=== PATIENT | female | born 1945 | race Caucasian/White ===

== ENCOUNTER → 2017-10-20 | Outpatient (CLI) | payer OTHER, MEDICAID ==
[~2017-10-20] MED LIST: ASPI325T4 PO; ATO40T PO; BACL10TA PO; CETI5TAB20 PO; DIPH2.5T73 PO; DULO60CA; FENO1TAB42 PO; FURO40TA; FURO40TA4 PO; GABA100C; GABA100C9 PO; LEVO100T8 PO; LEVO25TA6; LISI-709; LORA-205; MECL-87 PO; METO25TA62 PO; MONT10TA34 PO; OMEP20TA PO; OMEP20TA34; POTA12PO2; POTA20TA53 PO; SIMV80TA62; TRAM50TA2 PO; VENL75TA PO; VIT B-12
[2017-10-20 12:14] LABS: Urine Blood Negative /uL (Negative); Urine Specific Gravity 1.007 (1.001-1.035)
[2017-10-20 12:19] LABS: Basophils # (auto) 0.1 uL; Basophils % (auto) 1.1 % (0.0-2.0); Eosinophils # (auto) 0.2 uL; Eosinophils % (auto) 3.7 % (0.0-7.0); Hematocrit 41.5 % (36.0-46.0); Hemoglobin 13.7 g/dL (12.2-16.2); Lymphocytes # (auto) 2.3 uL; Lymphocytes % (auto) 39.5 % (10.0-50.0); Mean Corpuscular Hemoglobin 30.5 pg (28.0-32.0); Mean Corpuscular Hgb Conc. 33.2 g/dL (32.0-36.0); Mean Corpuscular Volume 92.1 fL (80.0-100.0); Monocytes # (auto) 0.5 uL; Monocytes % (auto) 9.4 % (0.0-12.0); Neutrophils # (auto) 2.7 uL; Neutrophils % (auto) 46.3 % (37.0-80.0); Nucleated Red Blood Cells % 0.3 %; Platelet Count (auto) 245 10^3/uL (140-450); Red Cell Distribution Width 13.7 % (11.8-14.3); White Blood Cell 5.8 10^3/uL (4.4-10.8)
[2017-10-20 12:41] LABS: Free T4 (Free Thyroxine) 1.43 ng/dL (0.89-1.76)
[2017-10-20 12:42] LABS: Albumin 3.8 g/dL (3.4-5.0); Bilirubin, Total 0.7 mg/dL (0.2-1.0); Calcium 9.5 mg/dL (8.5-10.1); Potassium 3.7 mmol/L (3.5-5.1); Total Protein 7.6 g/dL (6.4-8.2)
== END | disposition home or self-care (01) ==
LOC: Rad HDHVI 09:54
PROVIDERS: ATTEND Internal Medicine Cardiovascular Disease
DX: I70.0 Atherosclerosis of aorta (principal); E78.00 Pure hypercholesterolemia, unspecified; D64.9 Anemia, unspecified; I10 Essential (primary) hypertension; E11.9 Type 2 diabetes mellitus without complications; E03.9 Hypothyroidism, unspecified; E55.9 Vitamin D deficiency, unspecified; D51.9 Vitamin B12 deficiency anemia, unspecified; N39.0 Urinary tract infection, site not specified
CPT/HCPCS: 36415; 80053; 80061; 81003; 82306; 82607; 83036; 84439; 84443; 85025; 93306

== ENCOUNTER → 2017-10-22 | Outpatient (CLI) | payer OTHER, MEDICAID ==
[~2017-10-22] MED LIST changes: +ADENOSINE 80 MG in GIVE UN-DILUTED 0 ML IV ONE; +ADENOSINE 90 MG/30 ML INJ IV ONE
[2017-10-23 12:08] LABS: Urine Blood Negative /uL (Negative); Urine Specific Gravity 1.008 (1.001-1.035)
== END | disposition home or self-care (01) ==
LOC: Rad HDHVI 13:49
PROVIDERS: ATTEND Internal Medicine Cardiovascular Disease
DX: I10 Essential (primary) hypertension (principal); R06.02 Shortness of breath; R94.31 Abnormal electrocardiogram [ECG] [EKG]; M19.90 Unspecified osteoarthritis, unspecified site; G62.9 Polyneuropathy, unspecified; E78.5 Hyperlipidemia, unspecified; R20.0 Anesthesia of skin; N39.0 Urinary tract infection, site not specified; R07.89 Other chest pain
CPT/HCPCS: 78452; 81003; 87086; 93005; 96374; 96375; A9500; J0153

== ENCOUNTER → 2017-11-09 | Outpatient (CLI) | payer OTHER, MEDICAID ==
[~2017-11-09] MED LIST changes: -ADENOSINE 80 MG in GIVE UN-DILUTED 0 ML IV ONE; +ANGIOMAX 250 MG VIAL IV ONE; +CLOPIDOGREL 300 MG TAB ONE; +MIDAZOLAM HCL 1MG/1ML-2 ML VIAL ONE; +SODIUM CHL 0.9% 0 ML ONE; +SODIUM CHL 0.9% 50 ML ONE; +VERAPAMIL 2.5MG/ML INJ 2ML VIAL IV ONE; +fentaNYL CITRATE 100 MCG/2 ML VL ONE
[2017-11-09 15:35] VITALS: BP 132/78
[2017-11-09 15:40] VITALS: BP 117/67
== END | disposition home or self-care (01) ==
LOC: Rad HDHVI 14:18
PROVIDERS: ATTEND Internal Medicine Cardiovascular Disease
DX: Z01.818 Encounter for other preprocedural examination (principal); I10 Essential (primary) hypertension; E78.5 Hyperlipidemia, unspecified; D64.9 Anemia, unspecified; E78.00 Pure hypercholesterolemia, unspecified; R07.89 Other chest pain
CPT/HCPCS: 71046; 93005; G0463

== ENCOUNTER → 2017-11-10 | Outpatient (CLI) | payer OTHER, MEDICAID ==
[~2017-11-10] MED LIST changes: -ADENOSINE 90 MG/30 ML INJ IV ONE; -ANGIOMAX 250 MG VIAL IV ONE; -CLOPIDOGREL 300 MG TAB ONE; -DULO60CA; -FURO40TA; -GABA100C; -LEVO25TA6; -LISI-709; -LORA-205; -MIDAZOLAM HCL 1MG/1ML-2 ML VIAL ONE; -OMEP20TA34; -POTA12PO2; -SIMV80TA62; -SODIUM CHL 0.9% 0 ML ONE; -SODIUM CHL 0.9% 50 ML ONE; -VERAPAMIL 2.5MG/ML INJ 2ML VIAL IV ONE; -VIT B-12; -fentaNYL CITRATE 100 MCG/2 ML VL ONE
[2017-11-10 16:01] LABS: Basophils # (auto) 0.1 uL; Basophils % (auto) 1.2 % (0.0-2.0); Eosinophils # (auto) 0.2 uL; Eosinophils % (auto) 3.3 % (0.0-7.0); Hematocrit 46.1 % (36.0-46.0); Lymphocytes # (auto) 2.1 uL; Lymphocytes % (auto) 30.7 % (10.0-50.0); Mean Corpuscular Hemoglobin 30.3 pg (28.0-32.0); Mean Corpuscular Hgb Conc. 32.6 g/dL (32.0-36.0); Mean Corpuscular Volume 92.7 fL (80.0-100.0); Monocytes # (auto) 0.5 uL; Neutrophils # (auto) 3.9 uL; Neutrophils % (auto) 56.8 % (37.0-80.0); Nucleated Red Blood Cells % 1.7 %; Platelet Count (auto) 293 10^3/uL (140-450); Red Blood Cells 4.97 10^6/uL (4.0-5.20); Red Cell Distribution Width 14.1 % (11.8-14.3); White Blood Cell 6.8 10^3/uL (4.4-10.8)
[2017-11-10 16:20] LABS: BUN/Creatinine Ratio 14.4; Calcium 9.5 mg/dL (8.5-10.1); Potassium 3.9 mmol/L (3.5-5.1)
[2017-11-10 16:21] LABS: INR 0.93 (0.9-1.15); Partial Thromboplastin Time 27.4 sec (22.64-33.71); Prothrombin Time 10.1 sec (9.37-12.3)
== END | disposition home or self-care (01) ==
LOC: Rad HDHVI 11:32
PROVIDERS: ATTEND Internal Medicine Cardiovascular Disease
DX: Z01.818 Encounter for other preprocedural examination (principal); I65.22 Occlusion and stenosis of left carotid artery; D64.9 Anemia, unspecified; R79.1 Abnormal coagulation profile; I10 Essential (primary) hypertension; I25.10 Atherosclerotic heart disease of native coronary artery without angina pectoris; E78.5 Hyperlipidemia, unspecified; E78.00 Pure hypercholesterolemia, unspecified; Z85.3 Personal history of malignant neoplasm of breast
CPT/HCPCS: 36415; 80048; 85025; 85610; 85730; 93880

== ENCOUNTER 2017-11-11 07:57 | Inpatient (IN) | payer OTHER, MEDICAID ==
[~2017-11-11] VITALS: Ht 167.6 cm; Wt 97.7 kg
[2017-11-11] MEDS ORDERED: IODIXANOL 320MG/ML 100ML BTL IV ONE (08:44)
[2017-11-11] MEDS ORDERED: LIDOCAINE HCL 2 %PF INJ 10ML AMP IJ ONE (08:44)
[2017-11-11] MEDS ORDERED: ONDANSETRON HCL 4 MG/2 ML VIAL ONE (11:43)
[2017-11-11] MEDS ORDERED: MORPHINE SULFATE 4 MG/ML SYR/VIAL IV PRN ×2 (11:45→12:00)
[2017-11-11] MEDS ORDERED: ONDANSETRON HCL 4 MG/2 ML VIAL IV ONE (11:45)
[2017-11-11] MEDS ORDERED: NITROGLYCERIN 0.4 MG SL TAB SL PRN ×3 (11:45→12:00)
[2017-11-11] MEDS ORDERED: SODIUM CHLORIDE 0.9% 1,000 ML IV SCH (11:47)
[2017-11-11] MEDS ORDERED: ANGIOMAX 250 MG VIAL IV ONE (11:56)
[2017-11-11] MEDS ORDERED: CLOPIDOGREL 300 MG TAB ONE (11:56)
[2017-11-11] MEDS ORDERED: SODIUM CHL 0.9% 50 ML ONE (11:57)
[2017-11-11] MEDS ORDERED: fentaNYL CITRATE 100 MCG/2 ML VL ONE (11:57)
[2017-11-11] MEDS ORDERED: MIDAZOLAM HCL 1MG/1ML-2 ML VIAL ONE (11:57)
[2017-11-11] MEDS ORDERED: HYDROcodone-ACET 10/325MG TAB PO PRN (12:00)
[2017-11-11] MEDS ORDERED: KETOROLAC TROMETH 30 MG/ML 1ML VIAL IV PRN (12:00)
[2017-11-11] MEDS ORDERED: CLOPIDOGREL BISULFATE 75 MG TAB PO ONE (12:00)
[2017-11-11] MEDS ORDERED: ACETAMINOPHEN 500 MG TAB PO PRN (12:00)
[2017-11-11] MEDS ORDERED: MORPHINE SULF INJ 2 MG/ML SYRINGE 1ML IV PRN (12:00)
[2017-11-11] MEDS ORDERED: ADENOSINE 90 MG/30 ML INJ IV ONE (12:01)
[2017-11-11] MEDS: VENLAFAXINE HCL 25MG TABLET PO SCH (12:15)
[2017-11-11 13:30] VITALS: BP 91/52
[2017-11-11] MEDS: POTASSIUM CHL 20 Meq TABLET PO SCH ×2 (15:12→22:56)
[2017-11-11 16:55] VITALS: BP 91/52
[2017-11-11] MEDS: PANTOPRAZOLE 40 MG TAB PO SCH (18:58)
[2017-11-11 20:55] VITALS: BP 106/60
[2017-11-11] MEDS ORDERED: ATORVASTATIN 20 MG TAB PO SCH (22:00)
[2017-11-11] MEDS: GABAPENTIN 100 MG CAP PO SCH (22:57)
[2017-11-12 05:08] VITALS: BP 117/55
[2017-11-12] MEDS: VENLAFAXINE HCL 25MG TABLET PO SCH (06:27)
[2017-11-12] MEDS: POTASSIUM CHL 20 Meq TABLET PO SCH ×2 (06:27→14:00)
[2017-11-12] MEDS ORDERED: BACLOFEN 10 MG TAB PO SCH (07:00)
[2017-11-12] MEDS ORDERED: LEVOTHYROXINE SODIUM 100 MCG TAB PO SCH (07:00)
[2017-11-12 07:45] LABS: BUN/Creatinine Ratio 15.9; Calcium 8.7 mg/dL (8.5-10.1); Potassium 5.1 mmol/L (3.5-5.1)
[2017-11-12 09:00] VITALS: BP 103/59
[2017-11-12 09:35] LABS: Basophils # (auto) 0 uL; Basophils % (auto) 0.5 % (0.0-2.0); Eosinophils # (auto) 0.3 uL; Eosinophils % (auto) 4.1 % (0.0-7.0); Hemoglobin 13.5 g/dL (12.2-16.2); Lymphocytes # (auto) 1.6 uL; Lymphocytes % (auto) 23.6 % (10.0-50.0); Mean Corpuscular Hemoglobin 30.6 pg (28.0-32.0); Mean Corpuscular Hgb Conc. 32.9 g/dL (32.0-36.0); Mean Corpuscular Volume 93.2 fL (80.0-100.0); Monocytes # (auto) 0.4 uL; Monocytes % (auto) 6.3 % (0.0-12.0); Neutrophils # (auto) 4.3 uL; Neutrophils % (auto) 65.5 % (37.0-80.0); Nucleated Red Blood Cells % 0.2 %; Platelet Count (auto) 229 10^3/uL (140-450); Red Cell Distribution Width 14.1 % (11.8-14.3); White Blood Cell 6.6 10^3/uL (4.4-10.8)
[2017-11-12] MEDS ORDERED: CLOPIDOGREL BISULFATE 75 MG TAB PO SCH (10:00)
[2017-11-12] MEDS ORDERED: TRICOR 145 MG PO SCH (10:00)
[2017-11-12] MEDS ORDERED: METOPROLOL SUCCINATE XL 50 MG TAB PO SCH (10:00)
[2017-11-12] MEDS ORDERED: FUROSEMIDE 40 MG TAB PO SCH (10:00)
[2017-11-12] MEDS ORDERED: MONTELUKAST SODIUM 10 MG TAB PO SCH (10:00)
[2017-11-12] MEDS ORDERED: ASPirin 81 mg TAB PO SCH (10:00)
[2017-11-12] MEDS: PANTOPRAZOLE 40 MG TAB PO SCH (10:05)
[2017-11-12] MEDS: GABAPENTIN 100 MG CAP PO SCH (10:05)
[2017-11-12 13:00] VITALS: BP 124/65
[2017-11-12 16:08] VITALS: BP 103/59
== END 2017-11-12 17:00 | disposition home or self-care (01) | DRG 247 ==
LOC: CATH 07:57 → TELE-WESTW 07:58
PROVIDERS: ADMIT Internal Medicine; ATTEND Internal Medicine
PROC: 027034Z Dilation of Coronary Artery, One Artery with Drug-eluting Intraluminal Device, Percutaneous Approach (ICD-10-PCS; principal; 2017-11-11)
PROC: 4A033BC Measurement of Arterial Pressure, Coronary, Percutaneous Approach (ICD-10-PCS; 2017-11-11)
PROC: 4A023N7 Measurement of Cardiac Sampling and Pressure, Left Heart, Percutaneous Approach (ICD-10-PCS; 2017-11-11)
PROC: B2111ZZ Fluoroscopy of Multiple Coronary Arteries using Low Osmolar Contrast (ICD-10-PCS; 2017-11-11)
PROC: B2151ZZ Fluoroscopy of Left Heart using Low Osmolar Contrast (ICD-10-PCS; 2017-11-11)
DX: I25.10 Atherosclerotic heart disease of native coronary artery without angina pectoris (principal); E78.5 Hyperlipidemia, unspecified; I10 Essential (primary) hypertension; Z82.49 Family history of ischemic heart disease and other diseases of the circulatory system; Z85.3 Personal history of malignant neoplasm of breast; Z90.13 Acquired absence of bilateral breasts and nipples
CPT/HCPCS: 36415; 80048; 92928; 93458; 93571; 99152; C1874; J0153; J1885; J2250; J2405; Q9967

== ENCOUNTER → 2018-12-27 | Outpatient (CLI) | payer OTHER, MEDICAID | END | disposition home or self-care (01) | LOC: Rad HDHVI 13:02 | PROVIDERS: ATTEND Internal Medicine | DX: J44.9 Chronic obstructive pulmonary disease, unspecified (principal); I25.10 Atherosclerotic heart disease of native coronary artery without angina pectoris; I48.91 Unspecified atrial fibrillation | CPT/HCPCS: 93306 ==

== ENCOUNTER → 2019-01-20 | Outpatient (CLI) | payer OTHER, MEDICAID ==
[~2019-01-20] VITALS: Ht 165.1 cm; Wt 97.5 kg
[~2019-01-20] MED LIST changes: +ADENOSINE 82 MG in GIVE UN-DILUTED 0 ML IV ONE; +ADENOSINE 90 MG/30 ML INJ IV ONE
== END | disposition home or self-care (01) ==
LOC: Rad HDHVI 09:51
PROVIDERS: ATTEND Internal Medicine
DX: I25.10 Atherosclerotic heart disease of native coronary artery without angina pectoris (principal); J44.9 Chronic obstructive pulmonary disease, unspecified; M19.90 Unspecified osteoarthritis, unspecified site; E78.5 Hyperlipidemia, unspecified; E03.9 Hypothyroidism, unspecified; E66.9 Obesity, unspecified
CPT/HCPCS: 78452; 93005; 96374; 96375; A9500; J0153

== ENCOUNTER → 2019-06-07 | Outpatient (CLI) | payer OTHER, MEDICAID ==
[~2019-06-07] MED LIST changes: -ADENOSINE 82 MG in GIVE UN-DILUTED 0 ML IV ONE; -ADENOSINE 90 MG/30 ML INJ IV ONE; +POTA-220 PO; -POTA20TA53 PO
[2019-06-07 16:03] LABS: Urine Blood TRACE /uL (Negative); Urine Specific Gravity 1.007 (1.001-1.035)
[2019-06-07 16:06] LABS: Albumin 3.9 g/dL (3.4-5.0); Bilirubin, Total 0.7 mg/dL (0.2-1.0); Calcium 9.7 mg/dL (8.5-10.1); Potassium 3.5 mmol/L (3.5-5.1); Total Protein 8.2 g/dL (6.4-8.2)
== END | disposition home or self-care (01) ==
LOC: LAB 12:43
PROVIDERS: ATTEND Internal Medicine
DX: N39.0 Urinary tract infection, site not specified (principal); I10 Essential (primary) hypertension
CPT/HCPCS: 36415; 80053; 81003; 87086

== ENCOUNTER → 2019-09-22 | Outpatient (CLI) | payer OTHER, MEDICAID ==
[~2019-09-22] MED LIST changes: +FENO145T27 PO; -FENO1TAB42 PO; -METO25TA62 PO; +METO25TA93 PO
== END | disposition home or self-care (01) ==
LOC: Rad HDHVI 11:04
PROVIDERS: ATTEND Internal Medicine
DX: I25.10 Atherosclerotic heart disease of native coronary artery without angina pectoris (principal); I10 Essential (primary) hypertension; R00.2 Palpitations
CPT/HCPCS: 93306

== ENCOUNTER → 2019-09-27 | Outpatient (CLI) | payer OTHER, MEDICAID ==
[~2019-09-27] VITALS: Ht 167.6 cm; Wt 97.5 kg
[~2019-09-27] MED LIST changes: +ADENOSINE 82 MG in GIVE UN-DILUTED 0 ML IV ONE; +ADENOSINE 90 MG/30 ML INJ IV ONE; -MECL-87 PO; +MECL25TA18 PO
== END | disposition home or self-care (01) ==
LOC: Rad HDHVI 09:28
PROVIDERS: ATTEND Internal Medicine
DX: I25.10 Atherosclerotic heart disease of native coronary artery without angina pectoris (principal); I10 Essential (primary) hypertension; E78.5 Hyperlipidemia, unspecified; E78.00 Pure hypercholesterolemia, unspecified; Z95.5 Presence of coronary angioplasty implant and graft
CPT/HCPCS: 78452; 93005; 96374; 96375; A9500; J0153

== ENCOUNTER → 2021-09-04 | Outpatient (CLI) | payer OTHER ==
[~2021-09-04] MED LIST changes: -ADENOSINE 82 MG in GIVE UN-DILUTED 0 ML IV ONE; -ADENOSINE 90 MG/30 ML INJ IV ONE; -CETI5TAB20 PO; +CETI5TAB6 PO; +MONT-8 PO; -MONT10TA34 PO; +VENL1TAB99 PO; -VENL75TA PO
== END | disposition home or self-care (01) ==
LOC: Rad HDHVI 12:50
PROVIDERS: ATTEND Internal Medicine
DX: I05.9 Rheumatic mitral valve disease, unspecified (principal); I35.0 Nonrheumatic aortic (valve) stenosis; I48.91 Unspecified atrial fibrillation; E78.5 Hyperlipidemia, unspecified; I05.0 Rheumatic mitral stenosis
CPT/HCPCS: 93306

== ENCOUNTER → 2021-09-05 | Outpatient (CLI) | payer OTHER ==
[~2021-09-05] VITALS: Ht 167.6 cm; Wt 98.0 kg
[~2021-09-05] MED LIST changes: +ADENOSINE 82 MG in GIVE UN-DILUTED 0 ML IV ONE; +ADENOSINE 90 MG/30 ML INJ IV ONE
== END | disposition home or self-care (01) ==
LOC: Rad HDHVI 13:50
PROVIDERS: ATTEND Internal Medicine
DX: I25.10 Atherosclerotic heart disease of native coronary artery without angina pectoris (principal); I10 Essential (primary) hypertension; E78.5 Hyperlipidemia, unspecified; R42 Dizziness and giddiness; R07.89 Other chest pain
CPT/HCPCS: 78452; 93005; 96374; 96375; A9500; J0153

== ENCOUNTER → 2022-03-28 | Outpatient (CLI) | payer OTHER ==
[~2022-03-28] MED LIST changes: -ADENOSINE 82 MG in GIVE UN-DILUTED 0 ML IV ONE; -ADENOSINE 90 MG/30 ML INJ IV ONE
== END | disposition home or self-care (01) ==
LOC: Rad HDHVI 11:00
PROVIDERS: ATTEND Internal Medicine
DX: R07.89 Other chest pain (principal); R42 Dizziness and giddiness; R06.02 Shortness of breath
CPT/HCPCS: 93306

== ENCOUNTER → 2024-01-07 | Day surgery (SDC) | payer OTHER, MEDICAID ==
[2024-01-06 16:28] LABS: Basophils # (auto) 0.1 10 ^3/uL (0-0.2); Basophils % (auto) 0.8 % (0.0-2.0); Eosinophils # (auto) 0.2 10 ^3/uL (0-0.8); Eosinophils % (auto) 2.8 % (0.0-7.0); Hematocrit 43.7 % (36.0-46.0); Hemoglobin 14.5 g/dL (12.2-16.2); Lymphocytes # (auto) 2.2 10 ^3/uL (0.4-5.4); Lymphocytes % (auto) 34.1 % (10.0-50.0); Mean Corpuscular Hemoglobin 30.7 pg (28.0-32.0); Mean Corpuscular Hgb Conc. 33.3 g/dL (32.0-36.0); Mean Corpuscular Volume 92.2 fL (80.0-100.0); Monocytes # (auto) 0.5 10 ^3/uL (0-1.3); Neutrophils # (auto) 3.4 10 ^3/uL (1.6-8.6); Neutrophils % (auto) 54.3 % (37.0-80.0); Nucleated Red Blood Cells % 0.2 %; Red Blood Cells 4.73 10^6/uL (4.0-5.20); Red Cell Distribution Width 14.2 % (11.8-14.3); White Blood Cell 6.3 10^3/uL (4.4-10.8)
[2024-01-06 16:43] LABS: Partial Thromboplastin Time 25.7 SEC (24.5-34.5); Prothrombin Time 10.6 sec (9.3-11.8)
[2024-01-06 16:46] LABS: Chloride 111 mmol/L (98-107); Potassium 4.4 mmol/L (3.5-5.1); Sodium 141 mmol/L (136-145)
[2024-01-06 16:47] LABS: Anion Gap 6 (5-15); Calcium 10.5 mg/dL (8.7-10.4); Carbon Dioxide 24 mmol/L (20-30)
[2024-01-06 16:52] LABS: BUN/Creatinine Ratio 13.5 (10.0-20.0); Blood Urea Nitrogen 13 mg/dL (9-23); Glucose 106 mg/dL (74-106)
[~2024-01-07] VITALS: Ht 170.2 cm; Wt 93.4 kg
[~2024-01-07] MED LIST changes: +AMLO1TAB22 PO; +AMLO1TAB23 PO; -ASPI325T4 PO; +ASPI325T6 PO; -ATO40T PO; +ATOR-507 PO; -BACL10TA PO; +CHOL20007 PO; +CLOP75TA28 PO; +CLOTCRE3 EX; +CYCL-839 PO; +GABA-1308 PO; -GABA100C9 PO; +HYDR-3682 PO; +HYDR-4798 PO; +LEV50T PO; +MECL-90 PO; -MECL25TA18 PO; +METO-289 PO; +OMEGCAP28 PO; +POM PO; +TRAZ1TAB12 PO
== END | disposition home or self-care (01) ==
LOC: CATH 09:26
PROVIDERS: ATTEND Internal Medicine Cardiovascular Disease
DX: R00.1 Bradycardia, unspecified (principal); Z53.8 Procedure and treatment not carried out for other reasons; I10 Essential (primary) hypertension; Z79.01 Long term (current) use of anticoagulants; Z88.1 Allergy status to other antibiotic agents
CPT/HCPCS: 36415; 71260; 76604; 80048; 85025; 85610; 85730; Q9967

== ENCOUNTER 2024-06-21 06:23 | Day surgery (SDC) | payer OTHER, MEDICAID ==
[2024-06-20 11:10] LABS: Basophils # (auto) 0.1 10 ^3/uL (0-0.2); Eosinophils # (auto) 0.2 10 ^3/uL (0-0.8); Eosinophils % (auto) 3.8 % (0.0-7.0); Hematocrit 47.8 % (36.0-46.0); Hemoglobin 16.1 g/dL (12.2-16.2); Lymphocytes # (auto) 2.2 10 ^3/uL (0.4-5.4); Lymphocytes % (auto) 36.4 % (10.0-50.0); Mean Corpuscular Hemoglobin 30.8 pg (28.0-32.0); Mean Corpuscular Hgb Conc. 33.6 g/dL (32.0-36.0); Mean Corpuscular Volume 91.7 fL (80.0-100.0); Monocytes # (auto) 0.5 10 ^3/uL (0-1.3); Monocytes % (auto) 8.7 % (0.0-12.0); Neutrophils # (auto) 3.1 10 ^3/uL (1.6-8.6); Neutrophils % (auto) 50.1 % (37.0-80.0); Nucleated Red Blood Cells % 0.1 %; Platelet Count (auto) 271 10^3/uL (140-450); Red Blood Cells 5.21 10^6/uL (4.0-5.20); Red Cell Distribution Width 14.3 % (11.8-14.3); White Blood Cell 6.1 10^3/uL (4.4-10.8)
[2024-06-20 11:22] LABS: INR 1.04 (0.9-1.15); Partial Thromboplastin Time 25.9 SEC (24.5-34.5)
[2024-06-20 11:43] LABS: Anion Gap 6 (5-15); Carbon Dioxide 28 mmol/L (20-31); Chloride 107 mmol/L (98-107); Potassium 4.2 mmol/L (3.5-5.1); Sodium 141 mmol/L (136-145)
[2024-06-20 11:44] LABS: Calcium 10.9 mg/dL (8.7-10.4)
[2024-06-20 11:49] LABS: Blood Urea Nitrogen 16 mg/dL (9-23); Glucose 128 mg/dL (74-106)
[~2024-06-21] VITALS: Ht 170.2 cm; Wt 93.0 kg
[~2024-06-21 06:23] MED LIST changes: -AMLO1TAB22 PO; +ASPI-498 OR; -ASPI325T6 PO; -CETI5TAB6 PO; -CLOTCRE3 EX; -DIPH2.5T73 PO; -GABA-1308 PO; -HYDR-4798 PO; -LEV50T PO; +LEVO-848 PO; -LEVO100T8 PO; +MAGN400T40 PO; -METO25TA93 PO; -POM PO; +PREG100C PO
[2024-06-21] MEDS ORDERED: VANCOMYCIN HCL 1000 MG VL ONE (10:04)
[2024-06-21] MEDS ORDERED: fentaNYL CITRATE 100 MCG/2 ML VL ONE (10:04)
[2024-06-21] MEDS ORDERED: MIDAZOLAM HCL 2MG/2ML 2ml VIAL (1mg/ml) ONE (10:05)
[2024-06-21] MEDS ORDERED: LIDOCAINE 2%HCL (LOCAL ANESTH.) INJ 20ML MDV ONE (10:05)
[2024-06-21] MEDS ORDERED: VANCOMYCIN 1GM/200ML PREMIX 200 ML IV ONE (10:05)
--- NOTE | 2024-06-21 12:10 | ECG ---
[facility] Test Date: 2024-06-21 Test Time: 11:33:29 Pat Name: GIOVANNY TRACY Department: Room: Gender: F Cash Controller: IAN : 1945 Requested By: CARROL MENDOZA Order Number: [id number] Reading MD: Sarahi Lafleur Measurements Intervals [place] Rate: 71 P: 54 [place]: 146 QRS: 11 QRSD: 94 T: -15 QT: 430 QTc: 467 Interpretive Statements Normal sinus rhythm ST & T wave abnormality, consider inferior ischemia ST & T wave abnormality, consider anterolateral ischemia Electronically Signed On 06-21-2024 16:16:58 PST by Sarahi Lafleur Please click the below link to view image of tracing.
--- NOTE | 2024-06-21 12:19 | DVH ---
CHEST RADIOGRAPH Indication:S/P PACEMAKER Technique: Single frontal view of the chest was obtained Comparison: None FINDINGS: Lines and Tubes: Right dual lead pacemaker. Lungs: No focal consolidation. Pleura: No effusion. No pneumothorax. Cardiomediastinal contours: Cardiomegaly. Bones: No acute osseous abnormality. IMPRESSION: Cardiomegaly with mild CHF.
--- NOTE | 2024-07-01 13:50 | DVHOP ---
DATE OF SURGERY: 06/21/2024 PROCEDURES PERFORMED: 1. Dual chamber permanent pacemaker implantation. 2. Venography. 3. Conscious sedation. DESCRIPTION OF PROCEDURE: The patient was prepped and draped in a sterile condition. 1% Xylocaine used to anesthetize the left subclavicular region. Using a Cook needle, the left subclavian vein was engaged with Seldinger technique. A guidewire was then appropriately positioned. Using a 10 blade, linear incision was made using blunt dissection, electrocautery, pocket was dissected out. Then, using 9-Mosotho peel-away sheath, right ventricular active fixation lead then appropriately positioned. Threshold parameters were obtained. Lead was secured to the chest wall using 0 Ethibond. Similarly using a 7-Mosotho peel-away sheath, the right atrial active fixation lead then appropriately positioned. Threshold parameters were obtained. Lead was secured to the chest wall using 0 Ethibond. Generator was implanted. Pocket was irrigated using vancomycin saline solution. Pocket was closed using 3-0 Monoderm subcutaneous sutures by 3-0 Monoderm subcuticular sutures. There were no complications. The patient tolerated the procedure well. RESULTS: The patient had a Biotronik MRI compatible dual-chamber permanent pacemaker. Threshold parameters are right atrial lead, P-wave amplitude of 2.4 millivolts, threshold of 0.8 volts at 0.4 milliseconds, pulse duration, pacing impedance of 487 ohms. Right ventricular lead, R-wave amplitude of 12.8 millivolts, threshold of 0.7 volts at 0.4 milliseconds pulse duration, pacing impedance of 682 ohms. Thus, the patient had successful implantation of Biotronik MRI compatible dual-chamber permanent pacemaker. Oral Sun MD SA/ANA TID: [id number] RECEIPT: [id number]
== END 2024-06-21 13:42 | disposition home or self-care (01) ==
LOC: CATH 06:23
PROVIDERS: ATTEND Internal Medicine Cardiovascular Disease
DX: I44.30 Unspecified atrioventricular block (principal); I49.5 Sick sinus syndrome; I11.0 Hypertensive heart disease with heart failure; I50.9 Heart failure, unspecified; Z85.3 Personal history of malignant neoplasm of breast; F41.9 Anxiety disorder, unspecified; F32.A Depression, unspecified; Z88.2 Allergy status to sulfonamides; Z88.1 Allergy status to other antibiotic agents; Z79.82 Long term (current) use of aspirin; Z79.01 Long term (current) use of anticoagulants; Z79.899 Other long term (current) drug therapy
CPT/HCPCS: 33208; 36415; 71045; 80048; 85025; 85610; 85730; 93005; C1769; C1785; C1898; J2250; J3010; J3370; 99152; 99153

== ENCOUNTER → 2024-06-22 | Outpatient (CLI) | payer OTHER ==
--- NOTE | 2024-06-22 10:02 | DVH ---
EXAM: XY CHEST TWO VIEWS ROUTINE CLINICAL HISTORY: POST OP SOB COMPARISON: XY CHEST TWO VIEWS ROUTINE on DOS: 06/20/24, XY CHEST TWO VIEWS ROUTINE on DOS: 01/06/24 TECHNIQUE: Frontal and lateral view of the chest was obtained FINDINGS: Lungs: No focal consolidation. Pleura: No effusion. No pneumothorax. Cardiomediastinal contours: Unremarkable Bones: There are chronic healed right rib fractures. There is fusion hardware in the cervical spine. There is again a dual lead pacer in the right chest wall. There are surgical clips in the bilateral a xilla. IMPRESSION: 1. No acute cardiopulmonary disease. HS:Y
== END | disposition home or self-care (01) ==
LOC: Rad HDHVI 08:57
PROVIDERS: ATTEND Internal Medicine Cardiovascular Disease
DX: R06.02 Shortness of breath (principal); Z95.0 Presence of cardiac pacemaker; Z98.890 Other specified postprocedural states
CPT/HCPCS: 71046

== ENCOUNTER 2025-05-29 11:46 | Day surgery (SDC) | payer OTHER, MEDICAID ==
[2025-05-23 11:56] LABS: Hematocrit 45.9 % (36.0-46.0); Hemoglobin 15.5 g/dL (12.2-16.2); Mean Corpuscular Hemoglobin 30.5 pg (28.0-32.0); Mean Corpuscular Volume 90.2 fL (80.0-100.0); Nucleated Red Blood Cells % 0.0 %
[2025-05-23 12:09] LABS: INR 1.01 (0.9-1.15); Partial Thromboplastin Time 26.3 SEC (24.5-34.5); Prothrombin Time 10.7 sec (9.3-11.8)
[2025-05-23 12:59] LABS: Alanine Aminotransferase 23 U/L (7-40); Albumin 4.5 g/dL (3.2-4.8); Alkaline Phosphatase 49 U/L (46-116); Anion Gap 10 (5-15); BUN/Creatinine Ratio 15.2 (10.0-20.0); Bilirubin, Total 0.6 mg/dL (0.2-1.0); Blood Urea Nitrogen 17 mg/dL (9-23); Carbon Dioxide 29 mmol/L (20-31); Chloride 104 mmol/L (98-107); Potassium 4.1 mmol/L (3.5-5.1); Sodium 143 mmol/L (136-145); Total Protein 7.5 g/dL (5.7-8.2)
[2025-05-23 13:00] LABS: Calcium 10.4 mg/dL (8.7-10.4); Glucose 115 mg/dL (74-106)
[~2025-05-29] VITALS: Ht 167.6 cm; Wt 92.1 kg
[~2025-05-29 11:46] MED LIST changes: -CYCL-839 PO; -HYDR-3682 PO; -OMEP20TA PO; -TRAZ1TAB12 PO
[2025-05-29] MEDS ORDERED: MIDAZOLAM HCL 2MG/2ML 2ml VIAL (1mg/ml) ONE (12:50)
[2025-05-29] MEDS ORDERED: fentaNYL CITRATE 100 MCG/2 ML VL ONE (12:50)
[2025-05-29] MEDS: ceFAZolin 2 GM/D5W50ml 50 ML IV ONE (13:20)
[2025-05-29] MEDS: BUPIVACAINE 0.5% P/F INJ 10 ML VIAL ONE (13:30)
--- NOTE | 2025-05-29 13:34 | DVHOP2 ---
Operative Report - 2 Report Details Date: 05/29/25 Preop Diagnosis: 1. Right foot 2nd hammer toe 2. Right foot 3rd hammer toe 3. Right foot 4th hammer toe 4. Right foot pain Postop Diagnosis: Same as preop Surgeon: Gracy Turk MD Anesthesiologist: See anesthesia Anesthesia: Mac Consent: The patient was informed of the risks and benefits of the procedure. These include but are not limited to complications of anesthesia, postoperative infection, incomplete relief of symptoms, recurrence of symptoms, damage to blood vessels, nerves and tendons, deep venous thrombosis, pulmonary embolism and possible need for repeat surgery in the future. Complications: None Estimated Blood Loss: Minimal Fluids: See anesthesia Findings: Consistent with diagnosis Indications for Surgery: Worsening foot pain Name of Procedure Performed 1. Right 2nd hammer toe repair (45454) 2. Right 3rd hammer toe repair (15005) 3. Right 4th hammer toe repair (17213) 4. Right 2nd flexor tenotomy (71371) 5. Right 3rd flexor tenotomy (09571) 6. Right 4th flexor tenotomy (21546) Procedure Details Procedure Details: PRE-PROCEDURE INFORMATION: In the pre-op holding area, the extremity to be operated on was clearly marked and the patient verified correct laterality of the marking. The patient was transferred to the OR table and placed in a supine position. A timeout was performed in which identification of the correct patient, procedure, location, and materials was done. The _ foot and leg were prepped and draped in normal sterile fashion. The foot and leg were exsanguinated and the _ tourniquet was inflated to 250 mmHg. DESCRIPTION OF PROCEDURE: Attention was directed to the right 2nd toe where hammertoes located. A small stab incision was made medial to the proximal phalanx. Using the MIS bur, an osteotomy was made across the proximal phalanx. This allowed for adequate correction of the hammertoe deformity. It was noted clinically that the contracture was no longer there. Attention was directed to the right 3rd toe where hammertoes located. A small stab incision was made medial to the proximal phalanx. Using the MIS bur, an osteotomy was made across the proximal phalanx. This allowed for adequate correction of the hammertoe deformity. It was noted clinically that the contracture was no longer there. Attention was directed to the right 4th toe where hammertoes located. A small stab incision was made medial to the proximal phalanx. Using the MIS bur, an osteotomy was made across the proximal phalanx. This allowed for adequate correction of the hammertoe deformity. It was noted clinically that the contracture was no longer there. Attention was directed to the right 2nd toe where, using a 18 gauge needle, the toe was extended and a sweeping motion was made on the FDL. It was noted that the contracture of the digit was then relieved after the flexor tendon was released. Attention was directed to the right 3rd toe where, using a 18 gauge needle, the toe was extended and a sweeping motion was made on the FDL. It was noted that the contracture of the digit was then relieved after the flexor tendon was released. Attention was directed to the right 4tg toe where, using a 18 gauge needle, the toe was extended and a sweeping motion was made on the FDL. It was noted that the contracture of the digit was then relieved after the flexor tendon was released. All surgical wounds were irrigated copiously with saline and closed in layers with the aforementioned suture material. A dry sterile dressing was placed on the surgical extremity. The patient was placed in a post op shoe POSTOPERATIVE INFORMATION: The patient tolerated the above noted procedure and anesthesia well and was transferred to the PACU with vital signs stable, and vascular status intact with capillary refill intact to all digits. Postoperative instructions reviewed in detail with the patient with written instructions provided. Patient will return to clinic in approximately 10-14 days for first postoperative visit. Patient has the number of the clinic and was instructed to call prior to that time should any problems, questions, or concerns arise. Condition Good Disposition Home Visit Coding Podiatry Date of Service if different f: May 29, 2025 Billing Provider: GRACY TURK DPM Podiatry Common Visit Codes: PROCEDURE ONLY GRACY TURK DPM May 29, 2025 13:34
[2025-05-29 13:42] VITALS: PULSE 73; RESP 12; TEMP 97.2
[2025-05-29] MEDS ORDERED: PROPOFOL 10 MG/ML 20 ML IV ONE (14:15)
[2025-05-29 14:16] VITALS: BP 180/62; PULSE 95; RESP 17; O2SAT 95
== END 2025-05-29 14:30 | disposition home or self-care (01) ==
LOC: SUR 11:46
PROVIDERS: ATTEND Podiatrist
DX: M20.41 Other hammer toe(s) (acquired), right foot (principal); M79.671 Pain in right foot; M24.574 Contracture, right foot; J45.909 Unspecified asthma, uncomplicated; G47.33 Obstructive sleep apnea (adult) (pediatric); I12.9 Hypertensive chronic kidney disease with stage 1 through stage 4 chronic kidney disease, or unspecified chronic kidney disease; N18.30 Chronic kidney disease, stage 3 unspecified; I25.10 Atherosclerotic heart disease of native coronary artery without angina pectoris; E66.9 Obesity, unspecified; Z68.39 Body mass index [BMI] 39.0-39.9, adult
CPT/HCPCS: 28010; 28899; 36415; 80053; 85025; 85610; 85730; J0690; J1100; J2250; J2704; J3010; J3490; L3260